=== PATIENT | male | born 2000 | race Caucasian/White ===

== ENCOUNTER 2022-10-10 19:15 | Emergency (ER) | payer BC, SELFPAY ==
[2022-10-10 19:19] VITALS: BP 127/67; PULSE 96; RESP 14; TEMP 36.4; O2SAT 100; BMI 23.0
--- NOTE | 2022-10-10 21:22 | ED_ITS ---
HPI - Skin/Abscess/Foreign Bdy General Chief complaint: Skin/Abscess/Foreign Body Stated complaint: LUMP Time Seen by Provider: 10/10/22 19:50 Source: patient Mode of arrival: walk-in History of Present Illness HPI narrative: Patient presents to emergency department complaining of a boil to the gluteus. Patient states he has to collect this before which treated so. He states 2 days ago he had a pustule to the gluteal fold around the coccyx which he drained some pustular material and ingrown hairs. Since then he has a pinpoint opening and when they tried to press on it they only get a small amount of blood. The patient denies any pain, or fever. Denies any chills. He states his never had a pilonidal cyst or anything that needed to be surgically drained. Is not have any other complaints. Related Data Previous Rx's Medication Instructions Recorded cephalexin 500 mg capsule 500 mg PO TID 7 days #21 caps 10/10/22 sulfamethoxazole 800 1 tab PO BID 7 days #14 tabs 10/10/22 mg-trimethoprim 160 mg tablet (Bactrim DS) Allergies Allergy/AdvReac Type Severity Reaction Status Date / Time No Known Drug Allergies Allergy Verified 10/10/22 19:18 Review of Systems ROS Status of ROS 10 or more systems reviewed and unremarkable except as noted in history and below Exam Narrative Exam Narrative: Nurses notes and vital signs reviewed and patient is not hypoxic. General: Nontoxic, Well-appearing and in no apparent distress. Skin: Warm, dry, no pallor noted. No Rash Head: Normocephalic, atraumatic. Neck: Supple, non-tender. Eye: Pupils are equal, round and EOMI. No scleral icterus. Ears, Nose, Mouth, and Throat: TM clear, no posterior oropharynx erythema or nasal mucosal hypertrophy, uvula is mid-line Oral mucosa is moist Cardiovascular: Regular Rate and Rhythm without murmur, gallop or rub. Respiratory: No accessory muscle use or respiratory distress. Lungs are clear to auscultation, no wheezing, rales or rhonchi Chest Wall: no tenderness Back: No midline thoracic or lumbar vertebral tenderness. No CVA tenderness Pinpoint coccyx skin lesion with a small amount of dark blood draining. There is no exudate noted. There is no induration, erythema, or abscess.There is no fluctuance. There is no bony tenderness is no tenderness Elicited on palpation. There is no signs of pilonidal cysts. Musculoskeletal: normal ROM, no calf or popliteal tenderness, no lower extremity edema/swelling GI: Abdomen is soft, non-distended. Normal bowel sounds. No masses appreciated. No tenderness to palpation. No rebound, guarding, or rigidity noted. Neurological: A&O x4. No cranial nerve dysfunction observed. No truncal ataxia. Moves all extremities. Sensation intact. Psychiatric: Cooperative and interactive. Normal mood and affect. Constitutional Vital Signs, click to edit/add: Last Vital Signs Temp 97.5 F L 10/10/22 19:19 Pulse 96 H 10/10/22 19:19 Resp 14 10/10/22 19:19 BP 127/67 10/10/22 19:19 Pulse Ox 100 10/10/22 19:19 O2 Del Method Room Air 10/10/22 19:19 Course Vital Signs Vital signs: Vital Signs Temperature 97.5 F L 10/10/22 19:19 Pulse Rate 96 H 10/10/22 19:19 Respiratory Rate 14 10/10/22 19:19 Blood Pressure 127/67 10/10/22 19:19 Pulse Oximetry 100 10/10/22 19:19 Oxygen Delivery Method Room Air 10/10/22 19:19 Temperature 97.5 F L 10/10/22 19:19 Pulse Rate 96 H 10/10/22 19:19 Respiratory Rate 14 10/10/22 19:19 Blood Pressure 127/67 10/10/22 19:19 Pulse Oximetry 100 10/10/22 19:19 Oxygen Delivery Method Room Air 10/10/22 19:19 MDM - Skin/Abscess/Foreign Bdy MDM Narrative Medical decision making narrative: History and physical exam are more consistent with ,Infected hair follicle which they have drained. Family is advised to do warm compresses to the area. Given a prescription for Bactrim and Keflex. Family was concerned because there grandmother just admitted with a boil and was septic. Also the patient has a history of leukemia although its and in remission and he does not have any recent chemotherapy. He does not have any other complaints. At this time the patient is without objective evidence of an acute process requiring hospitalization or inpatient management. The patient has remained hemodynamically stable. No additional indication for emergent studies at this time. I answered all questions. Discussed discharge instructions including standard anticipatory guidance and what should prompt a return to the emergency department, including if they get worse are not getting better or develops any new or concerning symptoms. I've given them specific time frame in which to follow-up, and who to follow-up with. The patient demonstrates understanding. Patient is nontoxic and stable for discharge with outpatient follow-up. This note was created with the assistance of a speech recognition program. Although the intention is to generate documents that actually reflects the content of the visit, no guarantees can be provided that every mistake has been identified and corrected by editing. Differential Diagnosis Differential diagnosis: Likely abscess of skin or subcutaneous tissue, ce llulitis, eczema and impetigo Discharge Plan Discharge Chief Complaint: Skin/Abscess/Foreign Body Clinical Impression: Folliculitis Patient Disposition: Home, Self-Care Time of Disposition Decision: 21:27 Condition: Good Mode of Transportation: Private Vehicle Prescriptions / Home Meds: New sulfamethoxazole-trimethoprim [Bactrim DS] 800-160 mg tablet 1 tab PO BID 7 Days Qty: 14 0RF cephalexin 500 mg capsule 500 mg PO TID 7 Days Qty: 21 0RF Instructions: Folliculitis (ED) Additional Instructions: warm compresses as instructed. Stand Alone Forms: Portal Instructions Referrals: HERRERA ROBERTS APRN [Physician] - 1 week Discharge Date/Time: 10/10/22 21:49
== END 2022-10-10 21:49 | disposition home or self-care (01) ==
PROVIDERS: Emergency Provider Emergency Medicine
DX: L73.9 Follicular disorder, unspecified (principal); Z85.6 Personal history of leukemia
CPT/HCPCS: 99281

== ENCOUNTER 2023-12-11 23:51 | Emergency (ER) | payer BC, SELFPAY ==
[2023-12-11 23:59] VITALS: BP 158/79; PULSE 97; TEMP 36.7; O2SAT 100; BMI 25.1
--- NOTE | 2023-12-12 00:35 | US_ITS ---
The [address] [address] Patient Name: SAV LUND MRN: [id number] date: 2000 Sex: M Assigned Patient Location: ER Current Patient Location: ER Accession/Order Number: [id number] Exam Date: 12/12/2023 01:10 Report Date: 12/12/2023 02:32 At the request of: KEN JOHNSON Procedure: US scrotum EXAM TYPE: US scrotum INDICATION:torsion TECHNIQUE: Multiple images are obtained in the transverse and longitudinal dimensions. Color, bangura scale, and Doppler imaging has been performed COMPARISON: None. FINDINGS: The testicles are homogeneous in echotexture and symmetric in size. The right testicle measures 4.3 x 2.1 x 2.6 cm. The left testicle measures 4.1 x 2.0 x 2.7 cm. There are no intra-or extratesticular masses. Doppler interrogation demonstrates normal vascular flow in the testes bilaterally. The epididymides are normal bilaterally. There are no abnormal fluid collections. No abnormal scrotal thickening.There are no varicoceles. US/US scrotum IMPRESSION: Unremarkable testicular ultrasound. Electronically authenticated by: ERIN JACKSON Date: 12/12/2023 02:32
--- NOTE | 2023-12-12 00:36 | ED_ITS ---
HPI - Male Genitourinary General Chief complaint: Urogenital-Male Stated complaint: GROIN PAIN Time Seen by Provider: 12/12/23 00:32 Source: patient Mode of arrival: walk-in Limitations: no limitations History of Present Illness HPI Narrative: patient presents complaining of acute right testicle pain. Started about 3 hours ago. Denies injury. No urinary symptoms or abdominal pain Related Data Allergies Allergy/AdvReac Type Severity Reaction Status Date / Time No Known Drug Allergies Allergy Verified 12/11/23 23:58 Review of Systems ROS Status of ROS 10 or more systems reviewed and unremark able except as noted in history and below PFSH PFSH Social History Little interest or pleasure in doing things: not at all Feeling down, depressed, or hopeless: not at all Exam Constitutional Vital Signs, click to edit/add: Last Vital Signs Temp 98.1 F 12/11/23 23:59 Pulse 97 H 12/11/23 23:59 Resp 18 12/11/23 23:59 BP 158/79 H 12/11/23 23:59 Pulse Ox 100 12/11/23 23:59 O2 Del Method Room Air 12/11/23 23:59 Common normals: no apparent distress, average body habitus, oriented x3, no limitations, healthy appearing, alert and well nourished Eye Common normals: EOMs intact bilaterally and conjunctivae normal Respiratory Common normals: normal respiratory effort, no retractions, no use of accessory muscles and clear to auscultation bilaterally GI Common normals: Normal to inspection, nondistended, normoactive bowel sounds present, soft to palpation and non-tender Other: right testes not swollen but is tender. Extremity Common normals: normal to inspection and full ROM Neuro Common normals: oriented x3, CN's II-XII intact bilaterally, moves all extremities and no focal motor deficits Psych Appearance: grossly normal Course Vital Signs Vital signs: Vital Signs Temperature 98.1 F 12/11/23 23:59 Pulse Rate 97 H 12/11/23 23:59 Respiratory Rate 18 12/11/23 23:59 Blood Pressure 158/79 H 12/11/23 23:59 Pulse Oximetry 100 12/11/23 23:59 Oxygen Delivery Method Room Air 12/11/23 23:59 Temperature 98.1 F 12/11/23 23:59 Pulse Rate 97 H 12/11/23 23:59 Respiratory Rate 18 12/11/23 23:59 Blood Pressure 158/79 H 12/11/23 23:59 Pulse Oximetry 100 12/11/23 23:59 Oxygen Delivery Method Room Air 12/11/23 23:59 MDM - Male Genitourinary MDM Narrative Medical decision making narrative: patient presents with acute right testicle pain. testes not swollen but tender. US returned unremarkable. Patient still has pain but has decreased significantly. Discharged home and advised to use advil for pain as needed. UA clear Lab Data Labs: Lab Results 12/12/23 Range/Units 01:51 Urine Color Lt. yellow (YELLOW) Urine Clarity Clear (CLEAR) Urine pH 7.0 (5.0-9.0) Ur Specific [place] 1.010 (1.005-1.025) Urine Protein Negative (NEG/TRACE) mg/dL Urine Glucose (UA) Negative (NEGATIVE) mg/dL Urine Ketones Negative (NEGATIVE) mg/dL Urine Occult Blood Negative (NEGATIVE) Urine Nitrite Negative (NEGATIVE) Urine Bilirubin Negative (NEGATIVE) Urine Urobilinogen 0.2 (0.2-1.0) EU/dL Ur Leukocyte Esterase Negative (NEGATIVE) Imaging Data Chest x-ray: Radiologist's impression: ITS Impressions Scrotum Ultrasound 12/12/23 00:35 IMPRESSION: Unremarkable testicular ultrasound. Electronically authenticated by: ERIN JACKSON Date: 12/12/2023 02:32 Discharge Plan Discharge Chief Complaint: Urogenital-Male Clinical Impression: Pain in testicle Patient Disposition: Home, Self-Care Print Language: Persian Instructions: Testicle Pain (ED) Additional Instructions: use ibuprofen as needed for pain Referrals: Physician,Non-Staff, MD [Primary Care Provider] - 1 week
[2023-12-12 01:56] LABS: Bilirubin Urine NEGATIVE (NEGATIVE); Blood Urine NEGATIVE (NEGATIVE); Clarity Urine CLEAR (CLEAR); Color Urine LT. YELLOW (YELLOW); Glucose Urine UA NEGATIVE (NEGATIVE); Ketones Urine NEGATIVE (NEGATIVE); Leukocyte Esterase Urine NEGATIVE (NEGATIVE); Nitrite Urine NEGATIVE (NEGATIVE); Protein Urine NEGATIVE (NEG/TRACE); Urobilinogen Urine 0.2 EU/dL (0.2-1.0)
[2023-12-12 01:59] LABS: Urine Microscopic Indicated NO
== END 2023-12-12 02:52 | disposition home or self-care (01) ==
PROVIDERS: Emergency Provider Internal Medicine
DX: N50.811 Right testicular pain (principal)
CPT/HCPCS: 76870; 81003; 99284